=== PATIENT | female | born 1990 | race Caucasian/White ===

== ENCOUNTER 2019-11-17 22:34 | Emergency (ER) | payer OTHER ==
[~2019-11-17] VITALS: Ht 152.4 cm; Wt 68.0 kg
[2019-11-18] MEDS ORDERED: ZOFRAN4 MG PO (04:35)
[2019-11-18] MEDS ORDERED: PEPCID40 MG PO (04:35)
[2019-11-18] MEDS ORDERED: LEVSIN/SL0.125 MG SL (04:35)
[2019-11-18] MEDS ORDERED: INTESTINEX680 M1 PO (04:35)
== END 2019-11-18 04:41 ==
LOC: ER 22:34
DX: K52.89 Other specified noninfective gastroenteritis and colitis (principal)